=== PATIENT | female | born 1940 | race Caucasian/White ===

== ENCOUNTER 2017-11-03 14:17 | Observation (INO) ==
--- NOTE | 2017-11-03 14:35 | Emergency Department Note ---
Disposition Referrals: Adrián Hobbs DO [Partnered Physician] - Forms: ED Satisfaction Letter SOB HPI - General Chief Complaint: ED Shortness of Breath/Dyspnea Stated Complaint: dequan Time Seen by Provider: 11/03/17 14:18 Source: patient, EMS Mode of arrival: ambulatory Limitations: no limitations Nursing Notes Reviewed: Yes Vital Signs Reviewed: Yes - History of Present Illness Pt Subjective Complaint: shortness of breath, cough Onset (ago): day(s) Context: recent illness (thoracentecis) Severity: moderate Consistency/Duration: constant Improves with: nothing Worsens with: exertion, movement Known history of: COPD Associated symptoms: Reports: cough, wheezing, sputum production. Denies: chest pain, pain with inspiration, fever, orthopnea, lower extremity pain, polyuria, polydipsia, parasthesias, palpitations, hemoptysis, diaphoresis, nausea/vomiting, syncope, abdominal pain, sense of impending doom Treatment prior to arrival: oxygen Cough present: Yes Cough Description: Involuntary, Non-Productive, Weak Cough Frequency: Intermittent Sputum production: No Sputum Amount: Moderate Sputum Color: Yellow - Related Data Home Medications Medication Instructions Recorded Confirmed Albuterol Sulfate [Proair Hfa] 1 puff IH Q4H PRN 11/03/17 11/03/17 Amiodarone HCl [Pacerone] 200 mg PO DAILY 11/03/17 11/03/17 Amlodipine Besylate 5 mg PO DAILY 11/03/17 11/03/17 Aspirin [Lo-Dose Aspirin EC] 81 mg PO DAILY 11/03/17 11/03/17 Atorvastatin Calcium [Lipitor] 40 mg PO DAILY 11/03/17 11/03/17 Azelastine HCl [Astepro] 2 spray NS BID 11/03/17 11/03/17 Carvedilol [Coreg] 12.5 mg PO BID 11/03/17 11/03/17 Cetirizine HCl [All Day Allergy] 10 mg PO DAILY 11/03/17 11/03/17 Cholecalciferol (Vitamin D3) 5,000 unit PO DAILY 11/03/17 11/03/17 [Vitamin D3] Docusate Sodium [Colace] 100 mg PO BID 11/03/17 11/03/17 Ferrous Sulfate 325 mg PO BID 11/03/17 11/03/17 Fluticasone/Vilanterol [Breo 1 each IH DAILY 11/03/17 11/03/17 Ellipta 200-25 Mcg INH] Guaifenesin [Mucinex] 600 mg PO BID 11/03/17 11/03/17 Insulin Glargine [Lantus] 18 unit SQ 2100 11/03/17 11/03/17 Isosorbide MONOnitrate (24 HR) 30 mg PO DAILY 11/03/17 11/03/17 [Imdur] Levothyroxine [Synthroid] 100 mcg PO 0630 11/03/17 11/03/17 Montelukast [Singulair] 10 mg PO 2100 11/03/17 11/03/17 Multivit,Th Iron,Other Min 1 each PO DAILY 11/03/17 11/03/17 [Therems-M] Nitroglycerin [Nitrostat] 0.4 mg SL PRN 11/03/17 Polyethylene Glycol 3350 [Clearlax] 17 gm PO BID 11/03/17 11/03/17 Promethazine [Phenergan] 12.5 mg PO Q6HR PRN 11/03/17 11/03/17 Ranitidine HCl [Acid Strainer Tender] 150 mg PO BID 11/03/17 11/03/17 Torsemide [Demadex] 20 mg PO DAILY 11/03/17 11/03/17 Allergies Allergy/AdvReac Type Severity Reaction Status Date / Time Penicillins [PCN] Allergy Rash Verified 07/10/17 13:46 All systems ED: reviewed and negative except as stated. Review of Systems: As Per HPI Constitutional: Reports: weakness. Denies: fever, chills Eyes: Denies: eye pain, eye discharge ENT ED: Reports: congestion. Denies: ear pain, throat pain Cardiovascular: Denies: chest pain, palpitations, dyspnea on exertion Respiratory: Reports: cough, dyspnea, wheezes, sputum production Gastrointestinal: Denies: abdominal pain, nausea Genitourinary: Denies: urgency, dysuria, frequency Musculoskeletal: Denies: back pain Integumentary: Denies: rash, abrasion Neurological: Denies: headache Psychiatric: Denies: anxiety Endocrine: Denies: fatigue Hematological/Lymphatic: Denies: easy bleeding Allergic/Immunologic: Denies: facial swelling Past Medical History - Past Medical History Attestation: Yes The following information was validated with the patient. Source: patient, old records reviewed, nursing notes reviewed Medical history: Reports: atrial fibrillation, CHF, COPD, coronary artery disease, CVA, diabetes, hyperlipidemia, hypertension, myocardial infarction, peripheral artery disease, renal disease, thyroid disease, TIA Surgical history: Reports: angioplasty/stent, appendectomy, carotid endarterectomy, cholecystectomy, hysterectomy, other, LE stent (s), LE vascular intervention Psychiatric history: Reports: anxiety, panic disorder APPLICATIONS ENGINEER history: Reports: no APPLICATIONS ENGINEER history - Social History Smoking Status: Former smoker Smokeless Tobacco Status: No Alcohol use: Reports: none Drug use: Reports: none Physical Exam - General Limitations: no limitations General appearance: alert, in no apparent distress - Head Head exam: atraumatic, normocephalic, normal inspection - Eye Eye exam: Present: normal appearance, PERRL, EOMI - ENT ENT exam: normal exam, normal oropharynx, mucous membranes moist, TM's normal bilaterally, normal external ear exam - Neck Neck exam: Present: normal inspection, full ROM, trachea midline - Chest Chest inspection: Present: normal inspection, symmetric chest wall rise - Respiratory Respiratory exam: Present: wheezes, prolonged expiratory phase - Cardiovascular Cardiovascular exam: Present: regular rate, normal rhythm, normal heart sounds - Abdominal Exam Abdominal exam: Present: soft, Non-Tender, normal bowel sounds. Absent: mass, pulsatile mass - Extremities Exam Extremities exam: Present: normal inspection, full ROM, normal capillary refill. Absent: tenderness, pedal edema, joint swelling, calf tenderness - Expanded Lower Extremity Exam Neurovascular/Tendon exam: Present: normal capillary refill, normal fine/light touch Gait: observed and normal - Back Exam Back exam: Present: normal inspection, full ROM. Absent: tenderness, muscle spasm - Neurological Exam Neurological exam: Present: alert, oriented X3, CN II-XII intact, normal gait - Psychiatric Psychiatric exam: Present: normal affect, normal mood - Skin Skin exam: Present: warm, dry, intact, normal color Course Course Narrative: Patient was seen and examined chest x-ray and laboratory data was obtained with completion left radiation what appears to be a new pneumonia from her previous chest x-ray from just couple weeks ago patient will be admitted Cervone anabolic transferred to [facility] Dr. Wallace agrees Vital Signs Temperature 97.7 F 11/03/17 14:18 Pulse Rate 57 11/03/17 14:18 Respiratory Rate 18 11/03/17 14:18 Blood Pressure 184/66 11/03/17 14:18 O2 Sat by Pulse Oximetry 99 11/03/17 14:18 Temperature 97.7 F 11/03/17 14:18 Pulse Rate 54 11/03/17 15:43 Respiratory Rate 18 11/03/17 15:43 Blood Pressure 181/77 11/03/17 15:43 O2 Sat by Pulse Oximetry 98 11/03/17 15:43 Oxygen Delivery Oxygen Delivery Nasal Cannula Shortness of Breath/Dyspnea - Differential Diagnosis Likely: acute exacerbation of chronic obstructive airways disease, pneumonia - Medical Records Medical records reviewed: Yes I reviewed the patient's medical records. - Lab Data Lab results reviewed: Yes I reviewed the patient's lab results. Result diagrams: 11/03/17 14:46 11/03/17 14:46 Lab Results 11/03/17 11/03/17 11/03/17 Range/Units 14:46 14:46 14:46 WBC 8.4 (4.3-11.1) K/mcL RBC 2.76 L (3.82-4.97) M/mcL Hgb 9.0 L (11.5-15.4) g/dL Hct 26.7 L (35.3-44.9) % MCV 96.7 (83.0-100.0) fL MCH 32.6 (28.0-33.3) pg MCHC 33.7 (31.6-35.5) g/dL RDW 13.1 (11.5-14.5) % Plt Count 259 (140-400) K/mcL MPV 10.1 (9.4-12.4) fL Immature Gran % 0.2 (0-4) % Seg Neutrophils % 64.6 % Lymphocytes % 22.3 % Monocytes % 9.2 % Eosinophils % 3.3 % Basophils % 0.4 % Neutrophils # 5.4 (1.6-8.9) K/mcL Lymphocytes # 1.9 (0.6-4.6) K/mcL Monocytes # 0.8 (0.0-1.3) K/mcL Eosinophils # 0.3 (0.0-0.6) K/mcL Basophils # 0.0 (0.0-0.2) K/mcL PT (9.4-12.1) Seconds INR APTT 31.1 (26.0-36.0) Seconds Sodium 139 (136-145) mEq/L Potassium 4.5 (3.5-4.5) mEq/L Chloride 100 (98-109) mEq/L Carbon Dioxide 31 H (19-29) mEq/L BUN 34 H (7-20) mg/dL Creatinine 2.07 H (0.57-1.11) mg/dL Est GFR ( Amer) 28 L (> 60) Est GFR (Non-Af Amer) 23 L (> 60) BUN/Creatinine Ratio 16 (6-26) Glucose 197 H (70-99) mg/dL Calculated Osmolality 301 H (280-300) Calcium 9.2 (8.6-10.8) mg/dL Total Bilirubin 0.2 (0.2-1.2) mg/dL AST 19 (5-34) Units/L ALT 19 (0-55) Units/L Alkaline Phosphatase 146 H (38-126) Units/L Troponin I (0-0.03) ng/mL B-Natriuretic Peptide (0-100) pg/mL Serum Total Protein 7.0 (6.0-8.3) g/dL Albumin 2.5 L (3.5-5.0) g/dL Globulin 4.5 H (2.4-3.5) g/dL Albumin/Globulin Ratio 0.6 L (1.1-2.2) 11/03/17 11/03/17 11/03/17 Range/Units 14:46 14:46 14:46 WBC (4.3-11.1) K/mcL RBC (3.82-4.97) M/mcL Hgb (11.5-15.4) g/dL Hct (35.3-44.9) % MCV (83.0-100.0) fL MCH (28.0-33.3) pg MCHC (31.6-35.5) g/dL RDW (11.5-14.5) % Plt Count (140-400) K/mcL MPV (9.4-12.4) fL Immature Gran % (0-4) % Seg Neutrophils % % Lymphocytes % % Monocytes % % Eosinophils % % Basophils % % Neutrophils # (1.6-8.9) K/mcL Lymphocytes # (0.6-4.6) K/mcL Monocytes # (0.0-1.3) K/mcL Eosinophils # (0.0-0.6) K/mcL Basophils # (0.0-0.2) K/mcL PT 12.6 H (9.4-12.1) Seconds INR 1.2 APTT (26.0-36.0) Seconds Sodium (136-145) mEq/L Potassium (3.5-4.5) mEq/L Chloride (98-109) mEq/L Carbon Dioxide (19-29) mEq/L BUN (7-20) mg/dL Creatinine (0.57-1.11) mg/dL Est GFR ( Amer) (> 60) Est GFR (Non-Af Amer) (> 60) BUN/Creatinine Ratio (6-26) Glucose (70-99) mg/dL Calculated Osmolality (280-300) Calcium (8.6-10.8) mg/dL Total Bilirubin (0.2-1.2) mg/dL AST (5-34) Units/L ALT (0-55) Units/L Alkaline Phosphatase (38-126) Units/L Troponin I 0.04 H* (0-0.03) ng/mL B-Natriuretic Peptide 446 H (0-100) pg/mL Serum Total Protein (6.0-8.3) g/dL Albumin (3.5-5.0) g/dL Globulin (2.4-3.5) g/dL Albumin/Globulin Ratio (1.1-2.2) - Radiology Data Radiology results reviewed: Yes I reviewed the patient's radiology results. ITS Impressions Chest X-Ray 11/03/17 14:31 IMPRESSION: New mild left lower lobe airspace disease, atelectasis is favored, less likely pneumonia. Otherwise stable appearance of the chest with chronic unchanged right pleural effusion and adjacent chronic right basilar atelectasis. D/ / Mg Andrews MD / Mg Andrews MD Interpreting Provider: Mg Andrews MD - EKG Data EKG attestation: Yes I reviewed and interpreted this EKG. EKG results narrative: Bradycardia left axis right bundle branch block left ventricular hypertrophy C nonspecific T-wave changes 8:55 PM 186 QRS 152 QT 487 axis -33 EKG was compared to previous similar in apearance Critical Care Time Critical Care Time: No
[2017-11-03 14:54] LABS: Basophils % 0.4 %; Eosinophils # 0.3 K/mcL (0.0-0.6); Eosinophils % 3.3 %; Hematocrit 26.7 % (35.3-44.9); Immature Granulocytes % 0.2 % (0-4); Lymphocytes # 1.9 K/mcL (0.6-4.6); Lymphocytes % 22.3 %; Mean Corpuscular HGB Conc 33.7 g/dL (31.6-35.5); Mean Corpuscular Hemoglobin 32.6 pg (28.0-33.3); Mean Corpuscular Volume 96.7 fL (83.0-100.0); Mean Platelet Volume 10.1 fL (9.4-12.4); Monocytes # 0.8 K/mcL (0.0-1.3); Monocytes % 9.2 %; Neutrophils # 5.4 K/mcL (1.6-8.9); Platelet Count 259 K/mcL (140-400); Red Blood Count 2.76 M/mcL (3.82-4.97); Red Cell Distribution Width 13.1 % (11.5-14.5); Segmented Neutrophils % 64.6 %
[2017-11-03 14:58] LABS: INR 1.2; Prothrombin Time 12.6 Seconds (9.4-12.1)
[2017-11-03 15:10] LABS: Albumin 2.5 g/dL (3.5-5.0); Albumin/Globulin Ratio 0.6 (1.1-2.2); Bilirubin,Total 0.2 mg/dL (0.2-1.2); Calcium 9.2 mg/dL (8.6-10.8); Globulin 4.5 g/dL (2.4-3.5); Potassium 4.5 mEq/L (3.5-4.5)
[2017-11-03] MEDS ORDERED: Azithromycin 500 MG in D5% in Water 250 ML IVPB ONE (16:31)
[2017-11-03 17:14] LABS: Bilirubin,Urine Negative (Negative); Blood,Urine Trace-lysed (Negative); Clarity,Urine Clear (Clear); Color,Urine Yellow (Yellow); Glucose,Urine (UA) Normal (Normal); Ketones,Urine Negative (Negative); Leukocyte Esterase,Urine Negative (Negative); Nitrite,Urine Negative (Negative); Protein,Urine 100 mg/dL (Neg-Trace); Urobilinogen,Urine Normal (Normal)
[2017-11-03 17:22] LABS: Bacteria,Urine Few per hpf (None-Few); Mucus,Urine Few (Few); RBC,Urine 0-3 per hpf (0-3); Squamous Epithelial Cell,Urine Few per lpf (None-Few)
[2017-11-03] MEDS ORDERED: Naloxone 0.4 MG/ML INJ IVP PRN (19:55)
[2017-11-03] MEDS ORDERED: Ibuprofen 400 MG TABLET PO PRN (19:55)
[2017-11-03] MEDS ORDERED: Ondansetron ODT 4 MG TAB.RAPDIS SL PRN (19:55)
[2017-11-03] MEDS ORDERED: Acetaminophen 325 MG TABLET PO PRN (19:55)
[2017-11-03] MEDS ORDERED: 0.9 % Sodium Chloride 1,000 ML IVC SCH ×2 (19:55→23:30)
[2017-11-03] MEDS ORDERED: INSULIN GLARGINE 18 UNIT SQ SCH (21:00)
[2017-11-03] MEDS ORDERED: Insulin DETEMIR 100 UNIT/ML per UNIT SQ ONE (21:15)
[2017-11-03] MEDS: Azelastine 0.1% Nasal Spray 30 ML BOTTLE NS SCH (22:10)
[2017-11-04 06:04] LABS: Basophils % 0.5 %; Eosinophils # 0.3 K/mcL (0.0-0.6); Eosinophils % 4.2 %; Hematocrit 25.7 % (35.3-44.9); Hemoglobin 8.6 g/dL (11.5-15.4); Immature Granulocytes % 0.2 % (0-4); Lymphocytes % 24.1 %; Mean Corpuscular HGB Conc 33.5 g/dL (31.6-35.5); Mean Corpuscular Hemoglobin 32.3 pg (28.0-33.3); Mean Corpuscular Volume 96.6 fL (83.0-100.0); Mean Platelet Volume 10.7 fL (9.4-12.4); Monocytes # 0.7 K/mcL (0.0-1.3); Monocytes % 7.9 %; Neutrophils # 5.2 K/mcL (1.6-8.9); Platelet Count 278 K/mcL (140-400); Red Blood Count 2.66 M/mcL (3.82-4.97); Red Cell Distribution Width 12.9 % (11.5-14.5); Segmented Neutrophils % 63.1 %
[2017-11-04 06:28] LABS: Calcium 9.2 mg/dL (8.6-10.8)
[2017-11-04] MEDS ORDERED: Famotidine 20 MG TABLET PO SCH (07:30)
[2017-11-04] MEDS: Cholecalciferol (D-3) 1,000 UNIT TABLET PO SCH (08:13)
[2017-11-04] MEDS: *HR* Amiodarone 200 MG TABLET PO SCH (08:14)
[2017-11-04] MEDS: amLODIPine 5 MG TABLET PO SCH (08:15)
[2017-11-04] MEDS: Multivit/Ca/Min/Fe/FA 1 TAB TABLET PO SCH (08:16)
[2017-11-04] MEDS: Azelastine 0.1% Nasal Spray 30 ML BOTTLE NS SCH ×2 (08:20→20:20)
[2017-11-04] MEDS ORDERED: Isosorbide MONOnitrate (24 HR) 30 MG TAB.ER.24H PO SCH (09:00)
[2017-11-04] MEDS ORDERED: Loratadine 10 MG TABLET PO SCH (09:00)
[2017-11-04] MEDS ORDERED: Aspirin Enteric Coated 81 MG Tablet PO SCH (09:00)
[2017-11-04] MEDS ORDERED: Torsemide 20 MG TABLET PO SCH (09:00)
[2017-11-04] MEDS: Breo Ellipta 200-25 Mcg IH SCH (09:01)
--- NOTE | 2017-11-04 15:14 | Internal Med History&Physical ---
Date of Encounter: 11/04/17 Time of Encounter: 14:30 Assessment and Plan (1) Pneumonia Current visit: No Status: Acute She has been started on Rocephin and Zithromax. These will be continued with lactobacillus. Repeat labs will be done in a.m. Qualifiers: Pneumonia type: due to unspecified organism Laterality: left Lung location: lower lobe of lung Qualified Code(s): J18.1 - Lobar pneumonia, unspecified organism (2) Chronic anemia Current visit: No Status: Chronic Recent anemia testing showed iron 54, transferrin saturation 27%, transferrin 143, ferritin 188, B12 460, and folate 4.2. Will recheck folate level in a.m. Suspect anemia due at least in part to chronic kidney disease and aspirin use. (3) CKD (chronic kidney disease) stage 3, GFR 30-59 ml/min Current visit: No Status: Chronic Will decrease Demadex and monitor renal indices. (4) Pleural effusion Current visit: No Status: Chronic Presently asymptomatic. Will not workup for treat further. (5) Acute exacerbation of CHF (congestive heart failure) Current visit: No Status: Acute Will increase isosorbide, decrease Demadex, and monitor labs. Qualifiers: Congestive heart failure type: diastolic Qualified Code(s): I50.33 - Acute on chronic diastolic (congestive) heart failure Internal Medicine - H&P: HPI Chief complaint: Cough and dyspnea Admitted From: Emergency Dept Plans for Post Hospital Care: Home History of present illness: Ms. Cabrera is a 77 year old female who came to emergency room complaining of increased cough and dyspnea over the preceding 3 days. She states the cough is productive of white phlegm. She denies hemoptysis. She was evaluated in emergency room and was felt to have possible pneumonia. She was admitted to [facility] floor for ongoing care needs. Her respiratory history is significant for having smoked from age [age] up to 2 packs per day. She has a diagnosis of COPD and wears oxygen 29/05. She had ultrasound-guided right thoracentesis 09/06/2017 with 460 mL fluid removed from the right hemithorax. Fluid analysis showed benign findings. Past Med Surg Social Fam HX - Past Medical History Medical history: atrial fibrillation, CHF, COPD, coronary artery disease, CVA, diabetes, hyperlipidemia, hypertension, myocardial infarction, peripheral artery disease, renal disease, thyroid disease, TIA Psychiatric history: anxiety, panic disorder - Past Surgical History Surgical History: angioplasty/stent, appendectomy, carotid endarterectomy, cholecystectomy, hysterectomy, other, LE stent (s), LE vascular intervention - Social History Smoking Status: Former smoker Smokeless Tobacco Status: No Alcohol use: none Drug use: none - Family History Sister Family Member Ethnicity: Non- Living Status: Hx Family Cardiac Disorders: Yes (Blood clots) Hx Family Cancer: Yes (Stomach) Father Family Member Ethnicity: Non- Living Status: Hx Family Cardiac Disorders: Yes (Coronary artery disease is a 61, systolic heart failure with EF20%) Hx Family Respiratory Disorders: Yes (Emphysema) Mother Family Member Ethnicity: Non- Living Status: Hx Family Cardiac Disorders: Yes (Heart defect) Hx Family Endocrine Disorder: Yes (DM) Brother Adopted: No Family Member Ethnicity: Non- Living Status: Hx Family Cardiac Disorders: Yes Hx Family Respiratory Disorders: Yes Hx Family Cancer: Yes (Metastatic colon cancer) Hx Family GI Disorders: No Internal Medicine - H&P: Meds Albuterol Sulfate [Proair Hfa] 1 puff IH Q4H PRN 11/03/17 [History] Amiodarone HCl [Pacerone] 200 mg PO DAILY 11/03/17 [History] Amlodipine Besylate 5 mg PO DAILY 11/03/17 [History] Aspirin [Lo-Dose Aspirin EC] 81 mg PO DAILY 11/03/17 [History] Atorvastatin Calcium [Lipitor] 40 mg PO DAILY 11/03/17 [History] Azelastine HCl [Astepro] 2 spray NS BID 11/03/17 [History] Carvedilol [Coreg] 12.5 mg PO BID 11/03/17 [History] Cetirizine HCl [All Day Allergy] 10 mg PO DAILY 11/03/17 [History] Cholecalciferol (Vitamin D3) [Vitamin D3] 5,000 unit PO DAILY 11/03/17 [History] Docusate Sodium [Colace] 100 mg PO BID 11/03/17 [History] Ferrous Sulfate 325 mg PO BID 11/03/17 [History] Fluticasone/Vilanterol [Breo Ellipta 200-25 Mcg INH] 1 each IH DAILY 11/03/17 [ History] Guaifenesin [Mucinex] 600 mg PO BID 11/03/17 [History] Insulin Glargine [Lantus] 18 unit SQ 2100 11/03/17 [History] Isosorbide MONOnitrate (24 HR) [Imdur] 30 mg PO DAILY 11/03/17 [History] Levothyroxine [Synthroid] 100 mcg PO 0630 11/03/17 [History] Montelukast [Singulair] 10 mg PO 2100 11/03/17 [History] Multivit,Th Iron,Other Min [Therems-M] 1 each PO DAILY 11/03/17 [History] Nitroglycerin [Nitrostat] 0.4 mg SL PRN 11/03/17 [History] Polyethylene Glycol 3350 [Clearlax] 17 gm PO BID 11/03/17 [History] Promethazine [Phenergan] 12.5 mg PO Q6HR PRN 11/03/17 [History] Ranitidine HCl [Acid Family Service Caseworker] 150 mg PO BID 11/03/17 [History] Torsemide [Demadex] 20 mg PO DAILY 11/03/17 [History] 3 Allergy/AdvReac Type Severity Reaction Status Date / Time Penicillins [PCN] Allergy Rash Verified 07/10/17 13:46 All Systems PM: A 10-system review of systems was performed and is negative for pertinent findings except as documented above in the HPI. Review of systems: Gen.: She states her weight is been stable the past few months Cardiovascular: She has history of hypertension. She reports having several MIs in the past with the most recent one in 2017. She had a heart catheter at [facility] 10/25/2016 which showed LMCA with 60% stenosis in the mid portion, proximal LAD with 90% stenosis, first diagonal with 80% stenosis, and proximal RCA with 50% stenosis. She had angioplasty without stent placement to the LMCA , proximal LAD, and first diagonal. She had a complete echocardiogram 2016 which showed LVEF of 60% with mild concentric LVH and there is reported mild LV diastolic dysfunction with E/A ratio of 0.8. There was left atrial enlargement 4.50 cm.. The intraventricular septum and posterior wall thickness measurements were elevated at 1.30 cm each. There was a moderate pericardial effusion present but IVC collapse noted. There is no RV collapse. She had a limited echocardiogram 10/17/2017. She denies DVT or pulmonary embolus. Reports occasional heaviness sensation in her chest but unpredictable related to activity. Respiratory: As per history of present illness GI: She has had cholecystectomy. She had colonoscopy with polypectomy a few months ago by Dr. Smith with scheduled follow-up again on 11/13/2017. She has GERD. She denies disorders of her liver or exocrine pancreas : She denies hematuria dysuria or kidney stones Neurologic: She had a stroke March 2015 leaving her with mild right-sided weakness and numbness. She denies seizures Endocrine: She was diagnosed with DM 2 approximately 1999. She has hypothyroidism and hyperlipidemia Hematology/oncology: She has history of anemia but denies internal malignancies Psychiatric: She has history of depression but does not take medication. She denies other mental health issues. Musk skeletal: She has DJD but denies gout or other bone joint or muscle disorders - Constitutional Vitals: Temp Pulse Resp BP Pulse Ox 98.2 F 58 17 159/59 97 11/04/17 14:36 11/04/17 14:36 11/04/17 14:36 11/04/17 14:36 11/04/17 14:36 Exam: Gen.: She is a well-developed well-nourished female resting in bed who appears in no acute distress HEENT: Head is atraumatic and normocephalic. Eyes: EOMI. There is no scleral icterus. Mouth: Mucosa is moist. Neck: Supple and nontender. There is no thyromegaly or adenopathy noted. Heart: Regular without murmurs gallops or ectopics Lungs: No wheezes or crackles are heard. Abdomen: Soft and nontender. No masses or guarding are noted. Extremities: There is no cyanosis edema or clubbing noted. Dorsalis pedis and posterior tibial pulses are trace palpable bilaterally. Neurologic: Mental status: She is talkative and a good historian. Cranial nerves: Smile is symmetric. Forehead wrinkles bilaterally. Tongue protrudes midline. EOMI. Motor: There is no pronator drift. Cerebellar: Finger to nose is intact bilaterally. Skin: Warm and dry Internal Med - H&P Results - Labs CBC & Chem 7: 11/04/17 04:45 11/04/17 04:45 Labs: Short CBC 11/04/17 Range/Units 04:45 WBC 8.2 (4.3-11.1) K/mcL Hgb 8.6 L (11.5-15.4) g/dL Hct 25.7 L (35.3-44.9) % Plt Count 278 (140-400) K/mcL Neutrophils # 5.2 (1.6-8.9) K/mcL BMP 11/04/17 04:45 Sodium 141 Potassium 4.0 Chloride 102 Carbon Dioxide 32 H BUN 31 H Creatinine 1.60 H Glucose 73 Calcium 9.2 Urine 11/03/17 Range/Units 17:09 Urine Color Yellow (Yellow) Urine Clarity Clear (Clear) Urine pH 5.0 (5.0-8.0) pH Units Ur Specific Superior 1.010 (1.010-1.025) Urine Protein 100 H (Neg-Trace) mg/dL Urine Glucose (UA) Normal (Normal) mg/dL
[2017-11-04] MEDS ORDERED: Isosorbide MONOnitrate (24 HR) 30 MG TAB.ER.24H PO ONE (16:15)
[2017-11-04] MEDS: Azithromycin 500 MG in D5% in Water 250 ML IVPB SCH (16:17)
[2017-11-04] MEDS: Lactobacillus 1 EACH CAP.SPRINK PO SCH (20:16)
[2017-11-04] MEDS: Insulin DETEMIR 100 UNIT/ML X5UNITS SQ SCH (20:20)
[2017-11-05 07:04] LABS: Basophils % 0.4 %; Eosinophils # 0.4 K/mcL (0.0-0.6); Hematocrit 27.9 % (35.3-44.9); Hemoglobin 9.4 g/dL (11.5-15.4); Immature Granulocytes % 0.3 % (0-4); Lymphocytes # 2.3 K/mcL (0.6-4.6); Lymphocytes % 22.2 %; Mean Corpuscular HGB Conc 33.7 g/dL (31.6-35.5); Mean Corpuscular Hemoglobin 32.5 pg (28.0-33.3); Mean Corpuscular Volume 96.5 fL (83.0-100.0); Mean Platelet Volume 10.4 fL (9.4-12.4); Monocytes # 0.8 K/mcL (0.0-1.3); Monocytes % 7.5 %; Neutrophils # 6.9 K/mcL (1.6-8.9); Platelet Count 328 K/mcL (140-400); Red Blood Count 2.89 M/mcL (3.82-4.97); Red Cell Distribution Width 13.1 % (11.5-14.5); Segmented Neutrophils % 65.6 %
[2017-11-05 07:20] LABS: Calcium 9.6 mg/dL (8.6-10.8); Potassium 4.4 mEq/L (3.5-4.5)
[2017-11-05] MEDS: Lactobacillus 1 EACH CAP.SPRINK PO SCH ×2 (08:17→21:40)
[2017-11-05] MEDS: Isosorbide MONOnitrate (24 HR) 60 MG TAB.ER.24H PO SCH (08:17)
[2017-11-05] MEDS: Torsemide 20 MG TABLET PO SCH (08:18)
[2017-11-05] MEDS: amLODIPine 5 MG TABLET PO SCH (08:18)
[2017-11-05] MEDS: *HR* Amiodarone 200 MG TABLET PO SCH (08:18)
[2017-11-05] MEDS: Cholecalciferol (D-3) 1,000 UNIT TABLET PO SCH (08:18)
[2017-11-05] MEDS: Famotidine 20 MG TABLET PO SCH (08:18)
[2017-11-05] MEDS: Breo Ellipta 200-25 Mcg IH SCH (08:20)
[2017-11-05] MEDS: Multivit/Ca/Min/Fe/FA 1 TAB TABLET PO SCH (08:20)
[2017-11-05] MEDS: Azelastine 0.1% Nasal Spray 30 ML BOTTLE NS SCH ×2 (08:44→21:39)
--- NOTE | 2017-11-05 09:30 | Discharge Summary ---
Date of Encounter: 11/05/17 Time of Encounter: 09:15 - Discharge Diagnosis (1) Pneumonia Priority: Primary Status: Acute Qualifiers: Pneumonia type: due to unspecified organism Laterality: left Lung location: lower lobe of lung Qualified Code(s): J18.1 - Lobar pneumonia, unspecified organism (2) Chronic anemia Priority: Secondary Status: Chronic (3) CKD (chronic kidney disease) stage 3, GFR 30-59 ml/min Priority: Secondary Status: Chronic (4) Pleural effusion Priority: Secondary Status: Chronic (5) Acute exacerbation of CHF (congestive heart failure) Priority: Secondary Status: Acute Qualifiers: Congestive heart failure type: diastolic Qualified Code(s): I50.33 - Acute on chronic diastolic (congestive) heart failure - Discharge Medications Prescriptions: Cefuroxime PO [Ceftin] 500 mg PO Q12HR 3 Days tablet Azithromycin [Zithromax] 250 mg PO DAILY 3 Days tablet Lactobacillus [Culturelle] 1 each PO BID 3 Days [email or web address] Home Medications: Albuterol Sulfate [Proair Hfa] 1 puff IH Q4H PRN 11/03/17 [History] Amiodarone HCl [Pacerone] 200 mg PO DAILY 11/03/17 [History] Amlodipine Besylate 5 mg PO DAILY 11/03/17 [History] Atorvastatin Calcium [Lipitor] 40 mg PO DAILY 11/03/17 [History] Azelastine HCl [Astepro] 2 spray NS BID 11/03/17 [History] Carvedilol [Coreg] 12.5 mg PO BID 11/03/17 [History] Cholecalciferol (Vitamin D3) [Vitamin D3] 5,000 unit PO DAILY 11/03/17 [History] Docusate Sodium [Colace] 100 mg PO BID 11/03/17 [History] Ferrous Sulfate 325 mg PO BID 11/03/17 [History] Fluticasone/Vilanterol [Breo Ellipta 200-25 Mcg INH] 1 each IH DAILY 11/03/17 [ History] Guaifenesin [Mucinex] 600 mg PO BID 11/03/17 [History] Insulin Glargine [Lantus] 18 unit SQ 2100 11/03/17 [History] Levothyroxine [Synthroid] 100 mcg PO 0630 11/03/17 [History] Montelukast [Singulair] 10 mg PO 2100 11/03/17 [History] Multivit,Th Iron,Other Min [Therems-M] 1 each PO DAILY 11/03/17 [History] Nitroglycerin [Nitrostat] 0.4 mg SL PRN 11/03/17 [History] Polyethylene Glycol 3350 [Clearlax] 17 gm PO BID 11/03/17 [History] Promethazine [Phenergan] 12.5 mg PO Q6HR PRN 11/03/17 [History] Ranitidine HCl [Acid Schedule Manager] 150 mg PO BID 11/03/17 [History] Aspirin [Lo-Dose Aspirin EC] 81 mg PO Q48H #0 11/05/17 [Rx] Azithromycin [Zithromax] 250 mg PO DAILY 3 Days tablet 11/05/17 [Rx] Cefuroxime PO [Ceftin] 500 mg PO Q12HR 3 Days tablet 11/05/17 [Rx] Cetirizine HCl [All Day Allergy] 10 mg PO DAILY PRN #0 11/05/17 [Rx] Isosorbide MONOnitrate (24 HR) [Imdur] 60 mg PO DAILY #0 11/05/17 [Rx] Lactobacillus [Culturelle] 1 each PO BID 3 Days cap.[email or web address] 11/05/17 [Rx] Torsemide [Demadex] 10 mg PO DAILY #0 11/05/17 [Rx] Allergies/Adverse Reactions: 3 Allergy/AdvReac Type Severity Reaction Status Date / Time Penicillins [PCN] Allergy Rash Verified 07/10/17 13:46 Date of admission: 11/03/17 16:42 Primary care physician: Ang Reyna, Consults: 11/03/17 19:45 Consult to Pastoral Services [CONS] Routine Comment: Consult to Cellophane Wrapping Examiner [CONS] Routine Reason for SW Consult: Resident at [facility]. - Patient Status Disposition: Transfer SNF Overall status at discharge: patient is progressing back to baseline - Discharge Instructions - Diet and Activity Activity: resume usual activities as tolerated Diet: advance to your usual diet Hospital course: Ms. Cabrera is a 77 year old female who came to emergency room complaining of increased cough and dyspnea over the preceding 3 days. She states the cough is productive of white phlegm. She denies hemoptysis. She was evaluated in emergency room and was felt to have possible pneumonia. She was admitted to [facility] for ongoing care needs. Initial orders were written by the emergency room physician. I saw her on November 04 and performed the history and physical. She was started on Rocephin and Zithromax with Lactobacillus. She remained afebrile during her hospital stay. WBC remained normal and there was no left shift. When I saw her on November 05 she felt clinically improved and I felt she was stable for discharge back to the SNF. She will continue with antibiotic and probiotic for 3 additional days after discharge. Her Demadex dose was reduced and Imdur dose increased to see if there could be improvement in control of heart failure with improvement in azotemia. This will be continued upon discharge. Anemia testing is pending at time of discharge. Aspirin dose was decreased to 81 mg every other day. Hemoglobin improved to 9.4 by day of discharge. She will return to the SNF today and follow with Dr. Thompson. - Time Spent with Patient Total time spent providing and/or coordinating discharge services: - Constitutional Vitals: Temp Pulse Resp BP Pulse Ox 98.7 F 64 17 187/98 99 11/05/17 06:31 11/05/17 06:31 11/05/17 06:31 11/05/17 06:31 11/05/17 06:31
--- NOTE | 2017-11-05 09:38 | Physician Discharge Referral ---
ExtendedCare Referral Info Transfer To: [facility] Provider in Charge: Rodrigo Provider in Charge after Transfer: PCP (Donna) - Diagnosis (1) Pneumonia Priority: Primary Status: Acute (2) Chronic anemia Priority: Secondary Status: Chronic (3) CKD (chronic kidney disease) stage 3, GFR 30-59 ml/min Priority: Secondary Status: Chronic (4) Pleural effusion Priority: Secondary Status: Chronic (5) Acute exacerbation of CHF (congestive heart failure) Priority: Secondary Status: Acute Prognosis: Good Aware of Diagnosis: Patient Aware of Prognosis: Patient - Transfer Medications Prescriptions: Cefuroxime PO [Ceftin] 500 mg PO Q12HR 3 Days tablet Azithromycin [Zithromax] 250 mg PO DAILY 3 Days tablet Lactobacillus [Culturelle] 1 each PO BID 3 Days cap.sprink Home Medications: Albuterol Sulfate [Proair Hfa] 1 puff IH Q4H PRN 11/03/17 [History] Amiodarone HCl [Pacerone] 200 mg PO DAILY 11/03/17 [History] Amlodipine Besylate 5 mg PO DAILY 11/03/17 [History] Atorvastatin Calcium [Lipitor] 40 mg PO DAILY 11/03/17 [History] Azelastine HCl [Astepro] 2 spray NS BID 11/03/17 [History] Carvedilol [Coreg] 12.5 mg PO BID 11/03/17 [History] Cholecalciferol (Vitamin D3) [Vitamin D3] 5,000 unit PO DAILY 11/03/17 [History] Docusate Sodium [Colace] 100 mg PO BID 11/03/17 [History] Ferrous Sulfate 325 mg PO BID 11/03/17 [History] Fluticasone/Vilanterol [Breo Ellipta 200-25 Mcg INH] 1 each IH DAILY 11/03/17 [ History] Guaifenesin [Mucinex] 600 mg PO BID 11/03/17 [History] Insulin Glargine [Lantus] 18 unit SQ 209911/03/17 [History] Levothyroxine [Synthroid] 100 mcg PO 0630 11/03/17 [History] Montelukast [Singulair] 10 mg PO 2100 11/03/17 [History] Multivit,Th Iron,Other Min [Therems-M] 1 each PO DAILY 11/03/17 [History] Nitroglycerin [Nitrostat] 0.4 mg SL PRN 11/03/17 [History] Polyethylene Glycol 3350 [Clearlax] 17 gm PO BID 11/03/17 [History] Promethazine [Phenergan] 12.5 mg PO Q6HR PRN 11/03/17 [History] Ranitidine HCl [Acid Dry Heat Cabinet Attendant] 150 mg PO BID 11/03/17 [History] Aspirin [Lo-Dose Aspirin EC] 81 mg PO Q48H #0 11/05/17 [Rx] Azithromycin [Zithromax] 250 mg PO DAILY 3 Days tablet 11/05/17 [Rx] Cefuroxime PO [Ceftin] 500 mg PO Q12HR 3 Days tablet 11/05/17 [Rx] Cetirizine HCl [All Day Allergy] 10 mg PO DAILY PRN #0 11/05/17 [Rx] Isosorbide MONOnitrate (24 HR) [Imdur] 60 mg PO DAILY #0 11/05/17 [Rx] Lactobacillus [Culturelle] 1 each PO BID 3 Days cap.sprink 11/05/17 [Rx] Torsemide [Demadex] 10 mg PO DAILY #0 11/05/17 [Rx] Allergies/Adverse Reactions: 3 Allergy/AdvReac Type Severity Reaction Status Date / Time Penicillins [PCN] Allergy Rash Verified 07/10/17 13:46 - Respiratory Orders Oxygen / L per min (2-4 Liters per minute by nasal cannula as needed to keep sat greater than 90%.) Smoking Cessation: Smoking cessation has been advised. For more information, call the [place] Tobacco Quit Line at 1-082-CNLG-NOW. - Rehabiliation Orders Rehab Potential: Fair - Diet Orders Regular CERTIFICATION: I certify that the transfer of the above named patient to an Extended Care Facility is necessary for the continuing treatment of the diagnosis listed. The above information is true and accurate reflection of patient's current condition. Confidential - Redisclosure prohibited without a patient's written consent.
[2017-11-05] MEDS ORDERED: cefTRIAXone 1,000 MG in Water for inj. (sterile) 20 ML 10 ML IVP SCH (13:00)
[2017-11-05] MEDS: Azithromycin 500 MG in D5% in Water 250 ML IVPB SCH (18:07)
[2017-11-05] MEDS: Insulin DETEMIR 100 UNIT/ML X5UNITS SQ SCH (21:39)
[2017-11-06] MEDS: Lactobacillus 1 EACH CAP.SPRINK PO SCH (07:52)
[2017-11-06] MEDS: *HR* Amiodarone 200 MG TABLET PO SCH (07:53)
[2017-11-06] MEDS: Cholecalciferol (D-3) 1,000 UNIT TABLET PO SCH (07:53)
[2017-11-06] MEDS: Torsemide 20 MG TABLET PO SCH (07:53)
[2017-11-06] MEDS: Famotidine 20 MG TABLET PO SCH (07:53)
[2017-11-06] MEDS: Isosorbide MONOnitrate (24 HR) 60 MG TAB.ER.24H PO SCH (07:54)
[2017-11-06] MEDS: amLODIPine 5 MG TABLET PO SCH (07:54)
[2017-11-06] MEDS: Breo Ellipta 200-25 Mcg IH SCH (07:55)
[2017-11-06] MEDS: Multivit/Ca/Min/Fe/FA 1 TAB TABLET PO SCH (07:55)
[2017-11-06] MEDS: Azelastine 0.1% Nasal Spray 30 ML BOTTLE NS SCH (08:09)
[2017-11-06] MEDS ORDERED: Aspirin Enteric Coated 81 MG Tablet PO SCH (09:00)
[2017-11-06 10:04] VITALS: BP 154/53
--- NOTE | 2017-11-07 11:06 | Electrocardiograph Report ---
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
== END 2017-11-06 12:30 ==
LOC: EMEROOPIK 14:17 → INPPIK 14:17
PROVIDERS: ADMIT Internal Medicine; ATTEND Internal Medicine